=== PATIENT | female | born 1995 | race Caucasian/White ===

== ENCOUNTER 2021-04-27 20:10 | Observation (INO) | payer OTHER, SELFPAY ==
[2021-04-27 21:00] VITALS: BP 137/74; PULSE 78
[2021-04-27 21:15] VITALS: BP 135/75; PULSE 75
[2021-04-27 21:30] VITALS: BP 122/69; PULSE 86
[2021-04-27 21:35] LABS: Basophils Percent Auto 0.3 % (0.2-1.2); Eosinophils Absolute Auto 0.1 K/mm3 (0-0.3); Eosinophils Percent Auto 0.9 % (0-4.4); Hematocrit 34.6 % (37.0-47.0); Hemoglobin 11.6 g/dL (12.0-15.0); Immature Granulocyte Absolute 0.05 K/mm3 (0.00-0.031); Immature Granulocyte Percent A 0.4 % (0-0.5); Lymphocytes Absolute Auto 1.78 K/mm3 (0.9-3.2); Lymphocytes Percent Auto 12.7 % (18.3-44.2); Mean Corpuscular HGB Conc 33.5 g/dl (32-36); Mean Corpuscular Hemoglobin 30.9 pg (26-34); Mean Platelet Volume 10.7 fl (7.4-10.4); Monocytes Absolute Auto 0.7 K/mm3 (0.1-0.6); Monocytes Percent Auto 5.1 % (2.6-8.5); Neutrophils Absolute Auto 11.3 K/mm3 (1.3-6.7); Neutrophils Percent Auto 80.6 % (45.5-73.1); Platelet Count Result 255 k/mm3 (150-375); Red Blood Count 3.76 M/mm3 (4.2-5.4); Red Cell Distribution Width 13.2 % (11.5-14.5)
[2021-04-27 21:35] LABS: Add Urine Microscopic? NO; Appearance Urine Clear (Clear); Bilirubin Urine Negative (Negative); Blood Urine Negative (Negative); Color Urine Straw (Yellow); Glucose Urine UA Negative (Negative); Ketones Urine Negative (Negative); Leukocyte Esterase Ur Negative LEU/UL (NEGATIVE); Nitrate Urine Negative (Negative); Protein Urine Negative (Negative); Urobilinogen Urine Negative mg/dL (<2.0)
[2021-04-27 21:39] LABS: Specific Grav Ur 1.002 (1.001-1.035)
[2021-04-27 21:44] LABS: Alanine Aminotransferase 10 U/L (4-35); Albumin Level 3.4 g/dL (3.5-5.1); Alkaline Phosphatase 127 U/L (38-126); Anion Gap 7 mmol/L (8-16); Aspartate Amino Transferase 17 U/L (14-36); Bilirubin,Total 0.4 mg/dL (0.2-1.3); Calcium 8.7 mg/dL (8.4-10.2); Carbon Dioxide 21 mmol/L (22-30); Chloride 108 mmol/L (98-107); Creatinine Urine 24.2 mg/dL; Estimated Glomerular Filt Rate > 60; Glucose 95 mg/dL (65-110); Potassium 2.9 mmol/L (3.4-5.0); Sodium 136 mmol/L (137-145); Total Protein Urine Random 20 mg/dL; Ur Ttl Prot Creatinine Ratio 0.83 mg/mg (0-0.20); Uric Acid 4.1 mg/dL (2.5-7.5)
[2021-04-27 21:53] VITALS: BP 126/65; PULSE 75
--- NOTE | 2021-04-27 21:58 | LDADM ---
This patient, Alise Vaughn, was admitted to [facility] Post [facility] on 04/27/21 at 20:10. Plans for labor, pain management and were discussed with patient. Patient/family oriented to hospital policies and general routines including ID bracelet, bed and alarms, visiting hours, pain management, procedures, bathroom and other care routines, personal items, smoking policy, room service/diet and guest tray routines, security routines, and visiting hours. Patient/Family are encouraged to report perceived risks to care and to ask questions if they do not understand what they are told or what they should do. See OBIX for further documentation.
[2021-04-27 22:17] LABS: Blood Urea Nitrogen < 2 mg/dL (7-17)
--- NOTE | 2021-05-10 16:00 | P.PNOB_ITS ---
OB - Triage/Final Diagnosis Visit Information Comments/Additional reasons for admission: I have assessed the risk for this patient, Alise Vaughn, and determined that she would benefit from observation care. Evaluation Laboratory results: Laboratory Tests 04/27/21 04/27/21 04/27/21 21:17 21:17 21:17 WBC 14.0 H RBC 3.76 L Hgb 11.6 L Hct 34.6 L MCV 92.0 MCH 30.9 MCHC 33.5 RDW 13.2 Plt Count 255 MPV 10.7 H Immature Gran % (Auto) 0.4 Neut % (Auto) 80.6 H Lymph % (Auto) 12.7 L [place] % (Auto) 5.1 Eos % (Auto) 0.9 Baso % (Auto) 0.3 Lymph # (Auto) 1.78 [place] # (Auto) 0.7 H Eos # (Auto) 0.1 Baso # (Auto) 0.0 Abs Immat Gran (auto) 0.05 H Absolute Neuts (auto) 11.3 H Absolute Nucleated RBC 0.0 Nucleated RBC % 0.0 Sodium 136 L Potassium 2.9 L Chloride 108 H Carbon Dioxide 21 L Anion Gap 7 L BUN < 2 L Creatinine 0.40 L Estim Creat Clear Calc Not Reportable Estimated GFR > 60 Glucose 95 Uric Acid 4.1 Calcium 8.7 Total Bilirubin 0.4 AST 17 ALT 10 Alkaline Phosphatase 127 H Total Protein 6.0 L Albumin 3.4 L Urine Color Urine Appearance Urine pH Ur Specific [place] Urine Protein Urine Glucose (UA) Urine Ketones Ur Blood (Man) Urine Nitrate Urine Bilirubin Urine Urobilinogen Ur Leukocyte Esterase U Random Total Protein 20 Urine Creatinine 24.2 Protein/Creat Ratio 2 0.83 H 04/27/21 21:19 WBC RBC Hgb Hct MCV MCH MCHC RDW Plt Count MPV Immature Gran % (Auto) Neut % (Auto) Lymph % (Auto) [place] % (Auto) Eos % (Auto) Baso % (Auto) Lymph # (Auto) [place] # (Auto) Eos # (Auto) Baso # (Auto) Abs Immat Gran (auto) Absolute Neuts (auto) Absolute Nucleated RBC Nucleated RBC % Sodium Potassium Chloride Carbon Dioxide Anion Gap BUN Creatinine Estim Creat Clear Calc Estimated GFR Glucose Uric Acid Calcium Total Bilirubin AST ALT Alkaline Phosphatase Total Protein Albumin Urine Color Straw Urine Appearance Clear Urine pH 7.0 Ur Specific [place] 1.002 Urine Protein Negative Urine Glucose (UA) Negative Urine Ketones Negative Ur Blood (Man) Negative Urine Nitrate Negative Urine Bilirubin Negative Urine Urobilinogen Negative Ur Leukocyte Esterase Negative U Random Total Protein Urine Creatinine Protein/Creat Ratio 2 Final Diagnosis (1) Vomiting affecting : Code(s): O21.9 - Vomiting of , unspecified Sta
== END 2021-04-27 22:22 | disposition home or self-care (01) ==
PROVIDERS: Admitting Provider Obstetrics & Gynecology; Visit Provider Obstetrics & Gynecology
DX: O21.2 Late vomiting of pregnancy (principal); Z3A.38 38 weeks gestation of pregnancy
CPT/HCPCS: 36415; 80053; 81003; 82570; 84156; 84550; 85025; 87086; G0378; G0379

== ENCOUNTER 2021-05-01 04:53 | Inpatient (IN) | payer OTHER, SELFPAY ==
[2021-05-01] VITALS (79 sets, daily range): BP systolic 97–155; BP diastolic 52–101; PULSE 63–97; RESP 18–20; TEMP 36.5–37.2; O2SAT 100; BMI 31.3
--- NOTE | 2021-05-01 05:59 | LDADM ---
This patient, Alise Vaughn, was admitted to Labor/Delivery/Recovery 107 on 05/01/21 at 04:53. Plans for labor, pain management and were discussed with patient. Patient/family oriented to hospital policies and general routines including ID bracelet, bed and alarms, visiting hours, pain management, procedures, bathroom and other care routines, personal items, smoking policy, room service/diet and guest tray routines, infant security routines, and visiting hours. Patient/Family are encouraged to report perceived risks to care and to ask questions if they do not understand what they are told or what they should do. See OBIX for further documentation.
[2021-05-01 06:16] LABS: Basophils Percent Auto 0.3 % (0.2-1.2); Eosinophils Absolute Auto 0.4 K/mm3 (0-0.3); Eosinophils Percent Auto 3.9 % (0-4.4); Hematocrit 34.8 % (37.0-47.0); Hemoglobin 11.7 g/dL (12.0-15.0); Immature Granulocyte Absolute 0.03 K/mm3 (0.00-0.031); Immature Granulocyte Percent A 0.3 % (0-0.5); Lymphocytes Percent Auto 24.3 % (18.3-44.2); Mean Corpuscular HGB Conc 33.6 g/dl (32-36); Mean Corpuscular Hemoglobin 30.5 pg (26-34); Mean Corpuscular Volume 90.9 fl (80-100); Mean Platelet Volume 10.8 fl (7.4-10.4); Monocytes Absolute Auto 0.7 K/mm3 (0.1-0.6); Monocytes Percent Auto 7.2 % (2.6-8.5); Neutrophils Absolute Auto 5.8 K/mm3 (1.3-6.7); Platelet Count Result 238 k/mm3 (150-375); Red Blood Count 3.83 M/mm3 (4.2-5.4); Red Cell Distribution Width 13.1 % (11.5-14.5); White Blood Count 9.1 K/mm3 (4.5-10.0)
[2021-05-01] MEDS: LACTATED RINGERS 1,000 ML 125 ML IV CONT ×2 (06:18→09:34)
[2021-05-01] MEDS: OXYTOCIN 30 UNITS/NS 500 ML 30 UNITS/500 ML BAG IV CONT (06:18)
--- NOTE | 2021-05-01 07:16 | PM.IMHP ---
H&P: HPI History of Present Illness Date/Time: 05/01/21 07:16 25-year-old 3 para 1 admitted at term for induction of labor. She is negative for group B strep and has a favorable cervix. Early ultrasound confirmed dates Chief Complaint: medical induction of labor at term Review of Systems Review of Systems: All systems reviewed & are unremarkable except as noted in HPI and below PMFSH Family History Family History Other No pertinent family history Social History Social History Years smoked: 7 Smoking status: Current every day smoker Tobacco type: cigarettes Second hand tobacco smoke exposure: Yes Substance use: never Spiritual care concerns: No Meds Home Medications and Allergies Home Medications Medication Instructions Recorded Confirmed Type PNV cmb#95-ferrous fumarate-FA 1 tablet PO DAILY 04/07/21 04/07/21 History [] Allergies Allergy/AdvReac Type Severity Reaction Status Date / Time No Known Allergies Allergy Verified 04/07/21 15:28 Vital Signs Vital Signs - 24 hr 05/01/21 05:56 05/01/21 06:13 05/01/21 06:31 Temperature 98.4 F Pulse Rate 75 74 Respiratory Rate 20 Blood Pressure 125/74 126/72 Exam Const: General: no acute distress Eyes: General: appearance normal, both eyes and all related structures Neck: Neck: supple and no JVD Thyroid: thyroid normal Resp: Effort & Inspection: normal respiratory effort Auscultation: clear to auscultation bilaterally Cardio: Rate: regular rate Rhythm: regular rhythm GI: Inspection: non-distended GI Palp: Yes Soft to palpation, No Tenderness to palpation present (GI) and No Guarding due to palpation present (GI) Auscultation: normal bowel sounds : External Female Exam: normal external appearance Speculum Exam - Vagina: normal appearance of the vagina Speculum Exam - Cervix: Cervical os closed ( cervix 3/75/1. AROM clear. FHTs were reassuring) Skin: General skin exam: no rashes or lesions noted Extrem: General: normal to inspection and no edema Psych: Mental Status: mental status grossly normal Affect: normal affect H&P: Results Labs Labs: Short CBC 05/01/21 Range/Units 05:53 WBC 9.1 (4.5-10.0) K/mm3 Hgb 11.7 L (12.0-15.0) g/dL Hct 34.8 L (37.0-47.0) % Plt Count 238 (150-375) k/mm3 Assessment and Plan Additional Plan impression: Term with favorable cervix Plan: Medical induction of labor. Spontaneous vaginal delivery expected. She has an epidural candidate
--- NOTE | 2021-05-01 09:01 | WPDANESEPP ---
Anes - Eval Pre Procedure Procedure: Labor Pain Management Date/Time: 05/01/21 09:01 Surgeon: Boyd Boyle Preop Diagnosis: Pain During Labor Pre Op Diagnosis: IOL Patient Data Age: 25 Gender: F Height: 1.68 m Weight: 88 kg Last Vital Signs Temp 97.9 F 05/01/21 08:00 Pulse 66 05/01/21 08:31 Resp 20 05/01/21 08:00 BP 132/74 05/01/21 08:31 Allergies Allergy/AdvReac Type Severity Reaction Status Date / Time No Known Allergies Allergy Verified 04/07/21 15:28 Home Medications Medication Instructions Recorded Confirmed Type PNV cmb#95-ferrous fumarate-FA 1 tablet PO DAILY 04/07/21 04/07/21 History [] Laboratory Tests 05/01/21 05/01/21 05/01/21 05:52 05:53 05:54 WBC 9.1 K/mm3 K/mm3 (4.5-10.0) RBC 3.83 M/mm3 L M/mm3 (4.2-5.4) Hgb 11.7 g/dL L g/dL (12.0-15.0) Hct 34.8 % L % (37.0-47.0) MCV 90.9 fl fl (80-100) MCH 30.5 pg pg (26-34) MCHC 33.6 g/dl g/dl (32-36) RDW 13.1 % % (11.5-14.5) Plt Count 238 k/mm3 k/mm3 (150-375) MPV 10.8 fl H fl (7.4-10.4) Immature Gran % (Auto) 0.3 % % (0-0.5) Neut % (Auto) 64.0 % % (45.5-73.1) Lymph % (Auto) 24.3 % % (18.3-44.2) [place] % (Auto) 7.2 % % (2.6-8.5) Eos % (Auto) 3.9 % % (0-4.4) Baso % (Auto) 0.3 % % (0.2-1.2) Lymph # (Auto) 2.20 K/mm3 K/mm3 (0.9-3.2) [place] # (Auto) 0.7 K/mm3 H K/mm3 (0.1-0.6) Eos # (Auto) 0.4 K/mm3 H K/mm3 (0-0.3) Baso # (Auto) 0.0 K/mm3 K/mm3 (0.0-0.1) Abs Immat Gran (auto) 0.03 K/mm3 K/mm3 (0.00-0.031) Absolute Neuts (auto) 5.8 K/mm3 K/mm3 (1.3-6.7) Absolute Nucleated RBC 0.0 K/mm3 K/mm3 (0.0-0.012) Nucleated RBC % 0.0 % % (0.0-0.2) RPR Pending Blood Type B Positive Antibody Screen Negative : gestational age (edc 05/07/21) Patient hx anesthesia problems: none Family hx anesthesia problems: none Results Review: All pre-operative results and documents have been reviewed as part of the pre-operative evaluation. [facility] Family History Family History Other No pertinent family history Social History Social History Years smoked: 7 Smoking status: Current every day smoker Tobacco type: cigarettes Second hand tobacco smoke exposure: Yes Substance use: never Spiritual care concerns: No Exam Day of Procedure 05/01/21 09:01
[2021-05-01 13:26] LABS: Rapid Plasma Reagin Non-Reactive (NonReactive)
--- NOTE | 2021-05-01 15:05 | PM.OBPRVD ---
OB - Delivery Note Procedure Delivery date: 05/01/21 Intrapartal events: None Induction method: AROM Delivery augmentation: pitocin Delivery monitor: external FHT Route of delivery: Episiotomy description: None Laceration Description: None Specimen: No Quantitative Blood Loss (ml): 59 Anesthesia type: Epidural Disposition: floor Baby Date of : 05/01/21 Time of : 14:58 Weeks of gestation at delivery: 39 presentation: vertex position: Right Occiput Anterior Placenta delivery description: Spontaneous cord vessel description: 3 Vessels score one minute: 9 score five minutes: 9
[2021-05-01] MEDS: OXYTOCIN 30 UNITS/NS 500 ML 30 UNITS/500 ML BAG 125 UNITS IV CONT (15:29)
[2021-05-01] MEDS: IBUPROFEN 600 MG TABLET PO ×2 (17:02→22:37)
--- NOTE | 2021-05-01 17:19 | PC.NURSE ---
Patient transferred to post room # 288 per wheelchair. Support person present. Oriented to unit, room, information board, rooming in, admission packet and security measures. Patient verbalizes understanding.
[2021-05-02 04:15] VITALS: BP 98/57; PULSE 76; RESP 18; TEMP 36.9; O2SAT 97
[2021-05-02 05:40] LABS: Hematocrit 28.7 % (37.0-47.0); Hemoglobin 9.7 g/dL (12.0-15.0)
--- NOTE | 2021-05-02 07:42 | PM.OBPNVD ---
OB - PN: Subj Subjective Date/time seen: 05/02/21 07:42 Patient comments: no complaints and pain well controlled baby status: doing well OB - PN: Obj Data Labs CBC & Chem 7: 05/02/21 03:57 Labs: Laboratory Results - last 24 hr 05/01/21 05/01/21 05/02/21 05:52 05:54 03:57 Hgb 9.7 L Hct 28.7 L RPR Non-reactive Blood Type B Positive Antibody Screen Negative OB - PN A/P Plan day: 1 Plan: routine care Time Spent With Patient Time: Total time spent is greater than 50% in coordination of care (as documented) at patient's floor/unit and/or counseling patient: Time with patient: less than 15 minutes Review of Systems Review of Systems: All systems reviewed & are unremarkable except as noted in HPI and below Exam Const: General: no acute distress Eyes: General: appearance normal, both eyes and all related structures Neck: Neck: supple and no JVD Thyroid: thyroid normal Resp: Effort & Inspection: normal respiratory effort Auscultation: clear to auscultation bilaterally Cardio: Rate: regular rate Rhythm: regular rhythm GI: Inspection: non-distended GI Palp: Yes Soft to palpation, No Tenderness to palpation present (GI) and No Guarding due to palpation present (GI) Auscultation: normal bowel sounds : General: Yes bladder normal to palpation External Female Exam: normal external appearance Speculum Exam - Vagina: normal vaginal discharge and No vaginal bleeding Speculum Exam - Cervix: nontender Bimanual exam- vagina & uterus: bladder normal to palpation and No Cervical tenderness present OB/external & speculum: No vaginal bleeding Skin: General skin exam: no rashes or lesions noted Extrem: General: normal to inspection and no edema Psych: Mental Status: mental status grossly normal Affect: normal affect
--- NOTE | 2021-05-02 07:47 | P.DS_ITS ---
DS: Admitting Diagnosis Discharge Date 05/02/2021 Admitting Diagnosis term with favorable cervix DS: Summary Hospital Course Hospital Course: the patient was admitted for induction labor at term she underwent spontaneous vaginal delivery 05/01/2021. Postop course was unremarkable. She remained afebrile. She was up, ambulating, generally without complaints Time Spent with Patient Time attestation: Total time spent providing and/or coordinating discharge services: DS: Data Data Completed and Pending Labs on day of discharge: Labs from last 24 hours 05/02/21 05/01/21 05/01/21 03:57 05:54 05:52 Hgb 9.7 L Hct 28.7 L RPR Non-reactive Blood Type B Positive Antibody Screen Negative Discharge Plan Discharge Attending physician on discharge: Jonny Cuellar Discharging Clinician: Jonny Cuellar Patient Disposition: Home, Self-Care Activity: may shower, no straining and pelvic rest Diet: heart healthy Patient Instructions: Antibiotic Form, How to Stop Smoking (GEN) Stand Alone Forms: General Discharge Information Follow-up/Referrals: Jonny Cuellar MD [Physician] - Discharge Medications: Continued PNV cmb#95-ferrous fumarate-FA [] 28 mg iron- 800 mcg Tablet 1 tablet PO DAILY RF: 0 Date of admission: 05/01/21 04:53 Primary Care Provider: PHYSICIAN,MEDICAL IMAGING SPECIALIST Admitting Provider: Jonny uCellar Attending physician on admission: Jonny Cuellar Condition: Stable
[2021-05-02 07:55] VITALS: BP 133/84; PULSE 66; RESP 16; TEMP 36.5; O2SAT 100
[2021-05-02] MEDS: IBUPROFEN 600 MG TABLET PO (09:39)
[2021-05-02] MEDS: DOCUSATE SODIUM 100 MG CAPSULE PO ×2 (09:40→15:37)
[2021-05-02] MEDS: POLYSACCHARIDE IRON COMPLEX 150 MG CAPSULE PO ×2 (09:40→15:37)
[2021-05-02 11:45] VITALS: BP 104/67; PULSE 73; RESP 16; TEMP 36.8; O2SAT 99
[2021-05-02] MEDS: TETANUS,DIPHTHERIA,AC PERTUSSIS ADULT (0.5 ML) BOOSTRIX IM (15:38)
--- NOTE | 2021-05-02 18:37 | PC.NURSE ---
Patient was given the opportunity to view the discharge video Mother & Baby Care, The First Two Weeks and to ask questions. Patient declined viewing the video and has been given the mother/baby guide for home reference.
[2021-05-04 11:31] VITALS: BP 148/88; PULSE 65; RESP 20; TEMP 36.7
== END 2021-05-02 18:27 | disposition home or self-care (01) | DRG 560 ==
LOC: ANHLDR 04:59 → ANHOB2 17:32
PROVIDERS: Admitting Provider Obstetrics & Gynecology; Visit Provider Obstetrics & Gynecology
DX: O99.334 Smoking (tobacco) complicating childbirth (principal); F17.210 Nicotine dependence, cigarettes, uncomplicated; O76 Abnormality in fetal heart rate and rhythm complicating labor and delivery; Z3A.39 39 weeks gestation of pregnancy; Z37.0 Single live birth; Z23 Encounter for immunization
CPT/HCPCS: 36415; 85014; 85018; 85025; 86592; 86850; 86900; 86901; 90471; 90653; 90715; A9270; G0008; J2590; J7120

== ENCOUNTER 2021-05-04 15:03 | Emergency (ER) | payer OTHER, SELFPAY ==
[2021-05-04 15:07] VITALS: BP 147/83; PULSE 63; RESP 18; TEMP 36.9; O2SAT 100
--- NOTE | 2021-05-04 15:11 | ECG_ITS ---
Measurements Intervals [place] Rate: 59 P: 42 IL: 168 QRS: 62 QRSD: 97 T: 45 QT: 434 QTc: 431 Interpretive Statements SINUS BRADYCARDIA WITH MARKED SINUS ARRHYTHMIA DELAYED PRECORDIAL R/S TRANSITION BASELINE WANDER- V3-V4 BORDERLINE ECG Electronically Signed On 05-04-2021 16:59:43 TAILOR FITTER by Nirav Ontiveros D.O.
--- NOTE | 2021-05-04 17:51 | PC.NURSE ---
Attempted to call patient in for recheck of vitals. Patient did not respond. Unable to locate patient. Did not see when patient departed from ED.
== END 2021-05-05 02:30 | disposition left against medical advice (07) ==
LOC: ANHED 18:26
DX: O90.89 Other complications of the puerperium, not elsewhere classified (principal); R07.9 Chest pain, unspecified
CPT/HCPCS: 93005; 99199

== ENCOUNTER 2022-08-01 12:42 | Emergency (ER) | payer OTHER, SELFPAY ==
--- NOTE | ~2022-08-01 | CT_ITS ---
EXAMINATION: CT abdomen pelvis w con DATE: 08/01/2022 15:11 INDICATION: Abdominal pain with nausea, vomiting and diarrhea. TECHNIQUE: Computed tomography (CT) of the abdomen and pelvis was performed with 100 mL Omnipaque-350 intravenous contrast. Automated exposure control and iterative reconstruction technique were employe d. The dose-length product was 562.30 mGy-cm. COMPARISON: None FINDINGS: Lung bases are clear. Heart size is normal. No pericardial or pleural effusion. Liver, gallbladder, p ancreas and bilateral adrenal glands and kidneys are normal. A few scattered splenic calcifications c onsistent with old granulomatous disease. Normal appendix. No abnormal bowel wall thickening or obstr uction. Bladder, uterus and left ovary are normal. 2.2 cm right ovarian cyst/follicle. No free intrap eritoneal gas or fluid. No pathologically enlarged abdominal or pelvic lymphadenopathy. Bones are unr emarkable. IMPRESSION: 1. No acute intra-abdominal/pelvic process. Reviewed, dictated and finalized at location A. WASHER STRINGING MACHINE OPERATOR
[2022-08-01 12:46] VITALS: BP 153/97; PULSE 107; RESP 18; TEMP 36.8; O2SAT 99
[2022-08-01 13:00] LABS: Basophils Percent Auto 0.2 % (0.2-1.2); Eosinophils Absolute Auto 0.2 K/mm3 (0-0.3); Eosinophils Percent Auto 1.6 % (0-4.4); Hematocrit 50.7 % (37.0-47.0); Hemoglobin 16.5 g/dL (12.0-15.0); Immature Granulocyte Absolute 0.02 K/mm3 (0.00-0.031); Immature Granulocyte Percent A 0.2 % (0-0.5); Lymphocytes Absolute Auto 0.87 K/mm3 (0.9-3.2); Lymphocytes Percent Auto 8.5 % (18.3-44.2); Mean Corpuscular HGB Conc 32.5 g/dl (32-36); Mean Corpuscular Volume 89.1 fl (80-100); Mean Platelet Volume 10.1 fl (7.4-10.4); Monocytes Absolute Auto 0.3 K/mm3 (0.1-0.6); Monocytes Percent Auto 2.9 % (2.6-8.5); Neutrophils Absolute Auto 8.9 K/mm3 (1.3-6.7); Neutrophils Percent Auto 86.6 % (45.5-73.1); Platelet Count Result 185 k/mm3 (150-375); Red Blood Count 5.69 M/mm3 (4.2-5.4); Red Cell Distribution Width 13.1 % (11.5-14.5); White Blood Count 10.3 K/mm3 (4.5-10.0)
[2022-08-01 13:11] LABS: Alanine Aminotransferase 21 U/L (6-35); Albumin Level 4.8 g/dL (3.5-5.1); Alkaline Phosphatase 81 U/L (38-126); Anion Gap 6 mmol/L (8-16); Aspartate Amino Transferase 21 U/L (14-36); Blood Urea Nitrogen 9 mg/dL (7-17); Calcium 9.2 mg/dL (8.4-10.2); Carbon Dioxide 28 mmol/L (22-30); Chloride 100 mmol/L (98-107); Estimated CRCL calculation 100 ml/min; Estimated Glomerular Filt Rate > 60; Glucose 105 mg/dL (65-110); Lipase 51 U/L (23-300); Sodium 134 mmol/L (137-145)
[2022-08-01 13:20] VITALS: BP 130/89; PULSE 100; RESP 16; TEMP 36.8; O2SAT 100
[2022-08-01 13:28] LABS: Appearance Urine Cloudy (Clear); Bacteria Urine 1+ /hpf; Bilirubin Urine Negative (Negative); Blood Urine Negative (Negative); Color Urine Dark Yellow (Yellow); Glucose Urine UA Negative (Negative); Ketones Urine Trace mg/dL (Negative); Leukocyte Esterase Ur Negative LEU/UL (Negative); Nitrate Urine Negative (Negative); Non Pathogenic Casts 0-2; Protein Urine Negative (Negative); RBC Urine 0-2 /hpf (0-2); Specific Grav Ur 1.024 (1.001-1.035); Squamous Epithelial Cell Urine Moderate /hpf (Few); WBC Urine 0-5 /hpf; pH Urine 6.5 (5.0-9.0)
[2022-08-01 13:55] LABS: Add Urine Microscopic? YES
[2022-08-01] MEDS: ONDANSETRON INJ 4 MG/2 ML VIAL IV PUSH (14:51)
[2022-08-01] MEDS: KETOROLAC 30 MG/ML VIAL (*BKC) IV PUSH (14:53)
[2022-08-01] MEDS: FAMOTIDINE 20 MG/2 ML VIAL IV PUSH (14:56)
[2022-08-01] MEDS: SODIUM CHLORIDE 0.9% IV 1,000 ML 999 ML IV CONT (14:58)
[2022-08-01 15:23] VITALS: TEMP 36.8
[2022-08-01 15:24] VITALS: BP 120/69; PULSE 79; RESP 14; TEMP 36.8; O2SAT 99
--- NOTE | 2022-08-01 15:30 | ED.ABDPAIN ---
HPI - Abdominal Pain General Chief Complaint: Abdominal Pain Stated Complaint: abdominal pain, N/V/D Time Seen by Provider: 08/01/22 13:56 Source: patient Mode of arrival: ambulatory Limitations: no limitations History of Present Illness HPI narrative: 27-year-old female presents today with complaints of abdominal pain that started this morning with nausea vomiting diarrhea. Patient states on she was seen at the urgent care for congestion and cough was discharged with prednisone. Patient states she had no improvement and returned there on Saturday and was sent home with amoxicillin. Patient then awoke today with generalized abdominal pain, nausea, vomiting, diarrhea. States she has not eaten or been able to keep anything down today. Denies any dysuria, hematuria. Denies any fever, body aches, chills. She was negative for COVID and flu previously. MD elicited complaint: abdominal pain Pain Consistency: constant Location: diffuse Related Data Home Medications Medication Instructions Recorded Confirmed vit no.95-ferrous 1 tablet PO DAILY 04/07/21 04/07/21 fumarate 28 mg-folic acid 800 mcg tablet () Allergies Allergy/AdvReac Type Severity Reaction Status Date / Time No Known Allergies Allergy Verified 04/07/21 15:28 Review of Systems Review of Systems: CONSTITUTIONAL: Denies fever, chills, or sweats. EYES: Denies visual changes, redness, or discharge. ENT: Congestion. Denies congestion, sore throat, or otalgia. CARDIOVASCULAR: Denies chest pain, palpitations, or edema. RESPIRATORY: Denies cough or dyspnea. GASTROINTESTINAL: Generalized abdominal pain, nausea, vomiting, diarrhea. GENITOURINARY: Denies dysuria or hematuria. SKIN: Denies rash or itching. MUSCULOSKELETAL: Denies back pain, joint pain, or myalgia. NEUROLOGIC: Headache. denies numbness, dizziness, or weakness. PSYCHIATRIC: Denies anxiety or depression. PMFSH Family History Family History Other No pertinent family history Social History Social History Years smoked: 7 Smoking status: Current every day smoker Tobacco type: cigarettes Second hand tobacco smoke exposure: Yes Substance use: never Spiritual care concerns: No Exam Narrative: GENERAL: Well-appearing, well-nourished, and in no acute distress. HEAD: Normocephalic, atraumatic. EYES: PERRLA and EOMI. NECK: Supple. No adenopathy or masses. No carotid bruits or JVD CHEST: Clear to auscultation. No respiratory distress. No wheezes rales or rhonchi HEART: Regular rate and rhythm. No murmur heard. Normal peripheral pulses. ABDOMEN: Soft, generalized tenderness, nondistended, normal active bowel sounds. EXTREMITIES: Normal range of motion. No edema. SKIN: Warm, dry, no rash. NEURO: No focal deficits. Alert and oriented x3. PSYCH: Normal mood and affect. Course Course Emergency Course: CT shows no acute findings. Patient with improvement after IV fluids, Pepcid, and Zofran. Suspect abdominal discomfort is from the Augmentin she is now taking for her acute sinusitis from urgent care. Patient denies any headache after medications. Will discharge home. Discussed findings with patient and she is in agreement with plan of care. Will discharge with Zofran, Pepcid, and recommendation to continue Augmentin as previously prescribed. She is to follow-up with her primary care for any further concerns or return here with any urgent/emergent concerns. Vital Signs Vital signs: Vital Signs Temperature 98.2 F 08/01/22 12:46 Pulse Rate 107 H 08/01/22 12:46 Respiratory Rate 18 08/01/22 12:46 Blood Pressure 153/97 H 08/01/22 12:46 Pulse Oximetry 99 08/01/22 12:46 Oxygen Delivery Room Air 08/01/22 12:46 Temperature 98 F 08/01/22 16:19 Pulse Rate 85 08/01/22 16:19 Respiratory Rate 15 08/01/22 16:19 Blood Press
[2022-08-01 16:19] VITALS: BP 122/70; PULSE 85; RESP 15; TEMP 36.6; O2SAT 100
== END 2022-08-01 16:20 | disposition home or self-care (01) ==
PROVIDERS: Emergency Medicine; Emergency Provider Nurse Practitioner Family
DX: R10.84 Generalized abdominal pain (principal); F17.210 Nicotine dependence, cigarettes, uncomplicated
CPT/HCPCS: 36415; 74177; 80053; 81001; 81025; 83690; 85025; 96361; 96374; 96375; 99284; J1885; J2405; J7030; Q9967

== ENCOUNTER 2024-04-09 08:17 | Emergency (ER) | payer OTHER, SELFPAY ==
[2024-04-09] VITALS (16 sets, daily range): BP systolic 110–134; BP diastolic 69–93; PULSE 83–108; RESP 16–20; TEMP 36.6; O2SAT 97–100
--- NOTE | ~2024-04-09 | CT_ITS ---
EXAMINATION: CT abdomen pelvis w con DATE: 04/09/2024 09:51 INDICATION: Low abdominal pain. Nausea, vomiting, and diarrhea. TECHNIQUE: Computed tomography (CT) of the abdomen and pelvis was performed with 100 mL Omnipaque 350 intravenous contrast. Automated exposure control and iterative reconstruction technique were employe d. The dose-length product was 839.98 mGy-cm. COMPARISON: CT abdomen and pelvis 08/01/2022 FINDINGS: The visualized portions of lung bases are clear without pneumonia or pleural effusion. The heart size is normal. No pericardial effusion. The liver and gallbladder are normal. Calcifications i n the spleen are consistent with old granulomatous disease. The pancreas, adrenal glands, and right k idney are normal. There is a 2 mm stone in left kidney. There are no dilated loops of bowel. The appe ndix is normal. There are no pathologically enlarged lymph nodes. There is no free intraperitoneal fl uid. There is a 3.3 cm cyst in left ovary. There is mild lumbar spondylosis. IMPRESSION: 1. 3.3 cm cyst in left ovary, likely a follicular cyst. Reviewed, dictated and finalized at location A. [employer]
[2024-04-09] MEDS: SODIUM CHLORIDE 0.9% IV 1,000 ML 999 ML IV CONT (08:38)
[2024-04-09] MEDS: KETOROLAC 30 MG/ML VIAL (*BKC) IV PUSH (08:39)
[2024-04-09] MEDS: ONDANSETRON INJ 4 MG/2 ML VIAL IV PUSH (08:39)
[2024-04-09 08:43] LABS: Basophils Absolute Auto 0.02 K/mm3 (0.00-0.10); Basophils Percent Auto 0.2 % (0.0-1.0); Eosinophils Absolute Auto 0.08 K/mm3 (0.02-0.50); Eosinophils Percent Auto 0.6 % (1.0-6.0); Hematocrit 45.9 % (35.0-49.0); Hemoglobin 15.6 g/dL (12.0-15.0); Immature Granulocyte Absolute 0.04 K/mm3 (0.00-0.00); Immature Granulocyte Percent A 0.3 % (0.0-0.0); Lymphocytes Absolute Auto 0.71 K/mm3 (1.10-4.50); Lymphocytes Percent Auto 5.8 % (18.0-42.0); Mean Corpuscular Volume 85.3 fL (78.0-102.0); Mean Platelet Volume 9.8 fl (9.2-11.8); Monocytes Absolute Auto 0.32 K/mm3 (0.10-0.90); Monocytes Percent Auto 2.6 % (2.0-11.0); Neutrophils Absolute Auto 11.15 K/mm3 (1.70-7.20); Neutrophils Percent Auto 90.5 % (50.0-70.0); Platelet Count Result 183 K/mm3 (150-420); Red Blood Count 5.38 M/mm3 (4.20-5.40); Red Cell Distribution Width 12.6 % (11.6-14.4); White Blood Count 12.3 K/mm3 (4.8-10.8)
[2024-04-09 08:59] LABS: Alanine Aminotransferase 15 U/L (14-59); Albumin Level 3.1 g/dL (3.4-5.0); Alkaline Phosphatase 80 U/L (46-116); Anion Gap 9 mmol/L (4-12); Aspartate Amino Transferase < 10 U/L (15-37); Bilirubin,Total 0.7 mg/dL (0.00-1.00); Blood Urea Nitrogen 6 mg/dL (7-18); Calcium 8.2 mg/dL (8.5-10.1); Carbon Dioxide 24 mmol/L (21-32); Chloride 104 mmol/L (98-108); Estimated CRCL calculation 103 ml/min; Estimated Glomerular Filt Rate > 60; Glucose 146 mg/dL (70-99); Lipase 31 U/L (16-77); Osmolality Calculated 284 mOsm/kg (285-295); Sodium 137 mmol/L (136-145)
[2024-04-09 09:00] LABS: Partial Thromboplastin Time 26.5 Sec (23.9-30.70); Prothrombin Time 10.9 Seconds (9.50-12.1)
[2024-04-09 09:21] LABS: Add Urine Microscopic? NO; Appearance Urine Clear (Clear); Bilirubin Urine Negative (Negative); Blood Urine Negative (Negative); Color Urine Yellow (Yellow); Glucose Urine UA Negative (Negative); Ketones Urine Trace (Negative); Leukocyte Esterase Ur Negative LEU/UL (Negative); Nitrate Urine Negative (Negative); Protein Urine Negative (Negative); Urobilinogen Urine 0.2 mg/dL (0.2-1.0); pH Urine 5.5 (5.0-8.0)
[2024-04-09 09:21] LABS: SARS-CoV-2 RNA PCR Negative (Negative)
[2024-04-09 09:22] LABS: Influenza A QL RT-PCR Negative (Negative); Influenza B QL RT-PCR Negative (Negative); RSV RNA, RT-PCR Negative (Negative)
[2024-04-09 09:23] LABS: Pregnancy On Board Control Positive; Urine Pregnancy Test Negative
--- NOTE | 2024-04-09 09:40 | PC.NURSE ---
Patient taken down to Ct.
--- NOTE | 2024-04-09 09:52 | PC.NURSE ---
patient back in room from CT.
--- NOTE | 2024-04-09 09:58 | ED_ITS ---
HPI - URI/Sore Throat General Chief Complaint: Upper Respiratory Infection Stated Complaint: n/v Time Seen by Provider: 04/09/24 08:21 Source: patient and family Mode of arrival: ambulatory Limitations: no limitations History of Present Illness HPI Narrative: this is a 28-year-old female with no significant past medical history presents with abdominal pain localizing to the right upper quadrant and tender in the right lower quadrant for the last 1 day with no fever chills does have episodes of nausea vomiting and episode of diarrhea with no dysuria no flank pain no chest pain or shortness of breath. Severity: moderate Related Data Allergies Allergy/AdvReac Type Severity Reaction Status Date / Time No Known Allergies Allergy Verified 04/09/24 08:21 Review of Systems Review of Systems: All systems reviewed & are unremarkable except as noted in HPI and below PMFSH Past Medical History Medical History Patient denies medical problems Family History Family History Other No pertinent family history Social History Social History Years smoked: 7 Smoking status: Current every day smoker Tobacco type: cigarettes Second hand tobacco smoke exposure: Yes Substance use: never Spiritual care concerns: No Exam Const: General: healthy appearing Nutritional Appearance: well nourished Orientation/consciousness: patient oriented x3 Limitations: no limitations HENMT: Head: normal to inspection Chest: Chest palpation & inspection: normal inspection of the chest Resp: Effort & Inspection: normal respiratory effort Auscultation: clear to auscultation bilaterally Cardio: Rate: regular rate Rhythm: regular rhythm GI: GI Palp: Yes Soft to palpation and Yes Tenderness to palpation present (GI) : General: Yes bladder normal to palpation Skin: General skin exam: normal color Rashes: no rashes Neuro: General: patient oriented x3, moves all extremities and no meningeal signs Course Course Emergency Course: CT scan shows a renal stone left without obstruction and left follicular cyst, white count is elevated to 12,000 patient is afebrile rest of blood work is unremarkable. Patient received 30mg IV Toradol and 4mg IV Zofran as well as IV fluids patient symptoms have improved. Vital Signs Vital signs: Vital Signs Temperature 36.6 C 04/09/24 08:20 Pulse Rate 108 H 04/09/24 08:20 Respiratory Rate 20 04/09/24 08:20 Blood Pressure 134/93 H 04/09/24 08:20 Pulse Oximetry 98 04/09/24 08:20 Oxygen Delivery Room Air 04/09/24 08:20 Temperature 36.6 C 04/09/24 08:20 Pulse Rate 88 04/09/24 09:16 Respiratory Rate 16 04/09/24 09:16 Blood Pressure 119/69 04/09/24 09:16 Pulse Oximetry 98 04/09/24 09:16 Oxygen Delivery Room Air 04/09/24 08:20 MDM - URI/Sore Throat Lab Data 04/09/24 08:37 04/09/24 08:37 Labs: Lab Results 04/09/24 04/09/24 Range/Units 08:37 09:16 WBC 12.3 H (4.8-10.8) K/mm3 RBC 5.38 (4.20-5.40) M/mm3 Hgb 15.6 H (12.0-15.0) g/dL Hct 45.9 (35.0-49.0) % MCV 85.3 (78.0-102.0) fL MCH 29.0 (27.0-31.0) pg MCHC 34.0 (32-36) g/dL RDW 12.6 (11.6-14.4) % Plt Count 183 (150-420) K/mm3 MPV 9.8 (9.2-11.8) fl Immature Gran % (Auto) 0.3 H (0.0-0.0) % Neut % (Auto) 90.5 H (50.0-70.0) % Lymph % (Auto) 5.8 L (18.0-42.0) % [place] % (Auto) 2.6 (2.0-11.0) % Eos % (Auto) 0.6 L (1.0-6.0) % Baso % (Auto) 0.2 (0.0-1.0) % Lymph # (Auto) 0.71 L (1.10-4.50) K/mm3 [place] # (Auto) 0.32 (0.10-0.90) K/mm3 Eos # (Auto) 0.08 (0.02-0.50) K/mm3 Baso # (Auto) 0.02 (0.00-0.10) K/mm3 Abs Immat Gran (auto) 0.04 H (0.00-0.00) K/mm3 Absolute Neuts (auto) 11.15 H (1.70-7.20) K/mm3 Absolute Nucleated RBC 0.00 (0.00-0.00) K/mm3 Nucleated RBC % 0.0 (0-0.0) % PT 10.9 (9.50-12.1) Seconds INR 1.0 APTT 26.5 (23.9-30.70) Sec Sodium 137 (136-145) mmol/L Potassium 4.0 (3.5-5.1) mmol/L Chloride 104 (98-108) mmol/L Carbon Dioxide 24 (21-32) mmol/L Anion Gap 9 (4-12) mmol/L BUN 6 L (7-18) mg/dL Creatinine 0.81 (0.55-1.02) mg/dL Estim Creat Clear Calc 103 ml/min Estimated GFR > 60 (59 - ) Glucose 146 H (70-99) mg/dL Calculated Osmolality 284 L (285-295) mOsm/kg Lactic Acid 1.0 (0.4-2.0) mmol/L Calcium 8.2 L (8.5-10.1) mg/dL Total Bilirubin 0.7 (0.00-1.00) mg/dL AST < 10 L (15-37) U/L ALT 15 (14-59) U/L Alkaline Phosphatase 80 (46-116) U/L Total Protein 6.0 L (6.4-8.2) g/dL Albumin 3.1 L (3.4-5.0) g/dL Lipase 31 (16-77) U/L Urine Color Yellow (Yellow) Urine Appearance Clear (Clear) Urine pH 5.5 (5.0-8.0) Ur Specific [place] 1.020 (1.010-1.020) Urine Protein Negative (Negative) Urine Glucose (UA) Negative (Negative) Urine Ketones Trace H (Negative) Ur Blood (Man) Negative (Negative) Urine Nitrate Negative (Negative) Urine Bilirubin Negative (Negative) Urine Urobilinogen 0.2 (0.2-1.0) mg/dL Leukocyte Esterase Rfl Negative (Negative) TRICIA/UL Urine Test Negative Influenza A (RT-PCR) Negative (Negative) Influenza B (RT-PCR) Negative (Negative) RSV (RT-PCR) Negative (Negative) SARS-CoV-2 RNA (RT-PCR) Negative (Negative) Critical Care Time Critical Care Time Critical Care Time: No Discharge Plan Discharge Clinical Impression: Gastroenteritis, Renal calculi, Ovarian cyst, follicular Patient Disposition: Home, Self-Care Condition: Stable Instructions: Antibiotic Form, Kidney Stones (ED), Gastroenteritis (ED), Acute Nausea and Vomiting (ED) Additional Instructions: advised to take medication as prescribed and follow with primary within 1 week further evaluation treatment. Prescriptions: New naproxen 500 mg tablet 500 mg PO BID PRN (Reason: pain) Qty: 14 0RF ondansetron 4 mg tablet,disintegrating 4 mg PO Q6H PRN (Reason: nausea and vomiting) Qty: 14 0RF Follow-up/Referrals: UNKNOWN,DOCTOR [Primary Care Provider] - Time of Disposition: 10:04
== END 2024-04-09 10:13 | disposition home or self-care (01) ==
PROVIDERS: Emergency Provider Emergency Medicine
DX: K52.9 Noninfective gastroenteritis and colitis, unspecified (principal); N20.0 Calculus of kidney; N83.00 Follicular cyst of ovary, unspecified side; F17.210 Nicotine dependence, cigarettes, uncomplicated; Z20.822 Contact with and (suspected) exposure to COVID-19
CPT/HCPCS: 36415; 74177; 80053; 81003; 81025; 83605; 83690; 85025; 85610; 85730; 87637; 96361; 96374; 96375; 99284; J1885; J2405; J7030; Q9967